=== PATIENT | male | born 1945 | race Caucasian/White ===

== ENCOUNTER 2023-11-04 23:12 | Emergency (ER) | payer MEDICAID ==
[~2023-11-04] VITALS: Ht 170.2 cm; Wt 73.0 kg
[2023-11-04 23:18] VITALS: O2SAT 98
[2023-11-05] MEDS: BACITRACIN ZINC OINT UDPKT TOP ONE (02:05)
[2023-11-05] MEDS: BACITRACIN 14GM TUBE TOP ONE (02:06)
[2023-11-05] MEDS ORDERED: IBUP-2437 MT (02:30)
[2023-11-05 02:43] VITALS: BP 121/76; PULSE 82; RESP 18; TEMP 98.2
== END 2023-11-05 02:46 | disposition home or self-care (01) ==
LOC: ER 23:12 → EDBD 23:12 → ER 11-05 02:46
DX: S00.03XA Contusion of scalp, initial encounter (principal); Z85.05 Personal history of malignant neoplasm of liver; Y08.89XA Assault by other specified means, initial encounter; Y93.89 Activity, other specified; Y92.89 Other specified places as the place of occurrence of the external cause; Y99.8 Other external cause status
CPT/HCPCS: 99284